=== PATIENT | female | born 1955 | race African-American/Black ===

== ENCOUNTER 2022-03-08 16:02 | Emergency (ER) | payer MEDICARE, MEDICAID ==
[~2022-03-08] VITALS: Ht 165.1 cm; Wt 65.0 kg
[2022-03-08] MEDS ORDERED: HYDROCODONE/ACETAMINOPHEN 5/325MG TABLET PO STA (18:29)
[2022-03-08] MEDS ORDERED: BACITRACIN ZINC OINT UDPKT TOP ONE (18:30)
[2022-03-08] MEDS ORDERED: LIDOCAINE HCL 1% 20ML VIAL (Pyxis) INJ INFIL ONE (19:00)
[2022-03-08] MEDS ORDERED: AMOXICILLIN/POTASSIUM CLAVULANATE 875/125MG TAB PO ONE (19:15)
[2022-03-08] MEDS ORDERED: LIDOCAINE HCL 1% 10 MG/ML 10ML VIAL INJ NR (19:15)
[2022-03-08] MEDS ORDERED: KETOROLAC 60MG/2ML VIAL IM ONE (21:30)
[2022-03-08] MEDS ORDERED: TRAMADOL 50MG TABLET PO ONE (21:30)
[2022-03-08] MEDS ORDERED: IBUP-2029 MT (23:26)
[2022-03-08] MEDS ORDERED: AMOX-424 MT (23:26)
[2022-03-09 00:21] VITALS: BP 169/85
== END 2022-03-09 00:25 | disposition home or self-care (01) ==
LOC: ER 16:02
DX: S62.627B Displaced fracture of middle phalanx of left little finger, initial encounter for open fracture (principal); E11.9 Type 2 diabetes mellitus without complications; I10 Essential (primary) hypertension; W54.0XXA Bitten by dog, initial encounter; Y93.9 Activity, unspecified; Y93.89 Activity, other specified; Y92.89 Other specified places as the place of occurrence of the external cause; Y99.8 Other external cause status
CPT/HCPCS: 12004; 73130; 73140; 96372; 99284; J1885; J3490